=== PATIENT | female | born 1990 | race Caucasian/White ===

== ENCOUNTER 2020-08-02 18:20 | Emergency (ER) | payer BC, SELFPAY ==
--- NOTE | ~2020-08-02 | US_ITS ---
EXAMINATION: US pelvic complete w TV DATE: 08/02/2020 23:20 INDICATION: Right-sided pelvic pain and right adnexal mass, concern for ovarian torsion TECHNIQUE: Multiple transabdominal and endovaginal sonographic images of the pelvis were obtained. COMPARISON: None. FINDINGS: The uterus measures 7.9 x 3.9 x 5.7 cm. The endometrial complex measures 7 mm. There is a 1 4.9 x 10.0 x 14.2 cm cystic mass of the right adnexa. The right ovary is not definitely visualized du e to patient body habitus and displacement of the ovary by the mass. Some images labeled right adnexa appear to demonstrate vascular flow however this is not definitely attributed to the ovary. The left ovary measures 6.6 x 4.9 x 5.1 cm and contains a 5.7 x 4.6 x 4.7 cm hypoechoic mass. There is no nicolasa e fluid in the pelvis. IMPRESSION: 1. 14.9 cm cystic mass of the right adnexa without definite ovarian tissue identified. MANAGER EMERGENCY consultati on is recommended. 2. 5.7 cm hypoechoic lesion of the left ovary, possibly hemorrhagic cyst or endometrioma. Sonographic follow-up in 6-12 weeks is recommended. Reviewed, dictated and finalized at location A. IMPRESSION: 1. 14.9 cm cystic mass of the right adnexa without definite ovarian tissue iden tified. MANAGER EMERGENCY consultation is recommended. 2. 5.7 cm hypoechoic lesion of the left ovary, possibly hemorrhagic cyst or end ometrioma. Sonographic follow-up in 6-12 weeks is recommended.
--- NOTE | ~2020-08-02 | CT_ITS ---
EXAMINATION: CT abdomen pelvis wo con DATE: 08/02/2020 21:18 INDICATION: Right flank pain TECHNIQUE: Computed tomography (CT) of the abdomen and pelvis was performed without intravenous contr ast. The dose-length product (DLP) was 1627.18 mGy-cm. Automated exposure control and iterative recon struction technique were employed. COMPARISON: None FINDINGS: The lung bases are clear. The heart size is normal. The liver, spleen, pancreas, gallbladde r, and adrenal glands are normal. The kidneys are unremarkable. No stones are identified in the kidne ys, ureters, or bladder. There is no hydronephrosis or hydroureter. There is a 15.1 x 11.8 x 15.3 cm cystic lesion arising from the right adnexa. No definite solid nodular component is identified althou gh sensitivity is limited by the absence of intravenous contrast. There is a 6.5 x 5.0 cm cystic lesi on of the left adnexa. The appendix is not definitely identified. There is moderate spondylosis at L5 -S1. A fat-containing umbilical hernia is noted. IMPRESSION: 1. 15.3 cm cystic lesion of the right adnexa which may be benign or malignant. Given history of right flank pain, resulting ovarian torsion is a consideration. Recommend DRYWALL APPLICATOR consultation and consider pe lvic ultrasound. 2. 6.5 cm cystic lesion of the left adnexa which could be simultaneously evaluated with pelvic ultras ound. Reviewed, dictated and finalized at location A. IMPRESSION: 1. 15.3 cm cystic lesion of the right adnexa which may be benign or malignant. Given history of right flank pain, resulting ovarian torsion is a consideration . Recommend DRYWALL APPLICATOR consultation and consider pelvic ultrasound. 2. 6.5 cm cystic lesion of the left adnexa which could be simultaneously evalua jarod with pelvic ultrasound.
[2020-08-02 19:17] VITALS: BP 171/106; PULSE 96; RESP 16; TEMP 36.4; O2SAT 99
[2020-08-02 19:28] LABS: Basophils Percent Auto 0.3 % (0.2-1.2); Eosinophils Absolute Auto 0.2 K/mm3 (0-0.3); Eosinophils Percent Auto 1.4 % (0-4.4); Hemoglobin 13.6 g/dL (12.0-15.0); Immature Granulocyte Absolute 0.05 K/mm3 (0.00-0.031); Immature Granulocyte Percent A 0.4 % (0-0.5); Lymphocytes Absolute Auto 2.61 K/mm3 (0.9-3.2); Lymphocytes Percent Auto 22.7 % (18.3-44.2); Mean Corpuscular HGB Conc 32.4 g/dl (32-36); Mean Corpuscular Hemoglobin 26.2 pg (26-34); Mean Corpuscular Volume 80.8 fl (80-100); Mean Platelet Volume 9.5 fl (7.4-10.4); Monocytes Absolute Auto 0.6 K/mm3 (0.1-0.6); Monocytes Percent Auto 5.1 % (2.6-8.5); Neutrophils Absolute Auto 8.1 K/mm3 (1.3-6.7); Neutrophils Percent Auto 70.1 % (45.5-73.1); Platelet Count Result 398 k/mm3 (150-375); Red Cell Distribution Width 12.7 % (11.5-14.5); White Blood Count 11.5 K/mm3 (4.5-10.0)
[2020-08-02 19:40] LABS: Alanine Aminotransferase 42 U/L (4-35); Albumin Level 4.5 g/dL (3.5-5.1); Alkaline Phosphatase 111 U/L (38-126); Anion Gap 11 mmol/L (8-16); Aspartate Amino Transferase 36 U/L (14-36); Bilirubin,Total 0.5 mg/dL (0.2-1.3); Blood Urea Nitrogen 13 mg/dL (7-17); Calcium 9.4 mg/dL (8.4-10.2); Carbon Dioxide 26 mmol/L (22-30); Chloride 102 mmol/L (98-107); Estimated CRCL calculation 121 ml/min; Estimated Glomerular Filt Rate > 60; Glucose 92 mg/dL (65-105); Lipase 236 U/L (23-300); Potassium 3.6 mmol/L (3.4-5.0); Sodium 139 mmol/L (137-145)
[2020-08-02 20:05] LABS: Add Urine Microscopic? YES; Amorphous Sediment Urine Few; Appearance Urine Cloudy (Clear); Bacteria Urine Trace /hpf; Bilirubin Urine Negative (Negative); Blood Urine 2+ (Negative); Color Urine Yellow (Yellow); Glucose Urine UA Negative (Negative); Ketones Urine Negative (Negative); Leukocyte Esterase Ur 2+ LEU/UL (Negative); Mucus Urine Rare /lpf; Nitrate Urine Negative (Negative); Protein Urine 1+ mg/dL (Negative); Specific Grav Ur 1.028 (1.001-1.035); Squamous Epithelial Cell Urine Many /hpf (Few); Urobilinogen Urine Negative mg/dL (<2.0); WBC Urine 16-20 /hpf
[2020-08-02 20:57] VITALS: BP 148/90; PULSE 88; RESP 17; O2SAT 97
--- NOTE | 2020-08-02 21:07 | ED.ABDPAIN ---
HPI - Abdominal Pain General Chief Complaint: Abdominal Pain Stated Complaint: R flank pain Time Seen by Provider: 08/02/20 20:52 Source: patient Mode of arrival: ambulatory Limitations: no limitations History of Present Illness HPI narrative: Patient is a 30-year-old female who presents to emergency department for evaluation of right lower quadrant abdominal pain that began today as an aching pain that is remained persistent does not radiate has associated nausea denies similar occurrence or other complaints presents per private vehicle in no distress has not taken anything for symptoms Related Data Allergies Allergy/AdvReac Type Severity Reaction Status Date / Time No Known Allergies Allergy Verified 10/03/19 12:56 Review of Systems Review of Systems: All systems reviewed & are unremarkable except as noted in HPI and below PMFSH Past Medical History Medical History No pertinent family history No significant past medical history Surgical History Surgical History No significant past surgical history Social History Social History Smoking status: Never smoker Gender identity (if verbalized by the patient): Female Exam Narrative: Exam Narrative: GENERAL: Well-appearing, obese, and in no acute distress. HEAD: Normocephalic, atraumatic. EYES: PERRLA and EOMI. ENT: Nares clear, no rhinorrhea or epistaxis. Mucous membranes moist. CHEST: Clear to auscultation. No respiratory distress. No wheezes rales or rhonchi HEART: Regular rate and rhythm. No murmur heard. Normal peripheral pulses. ABDOMEN: Soft, right lower quadrant abdominal tenderness to palpation, nondistended, normal active bowel sounds. EXTREMITIES: Normal range of motion. No edema. SKIN: Warm, dry, no rash. NEURO: No focal deficits. Alert and oriented x3. PSYCH: Normal mood and affect. Course Course Emergency Course: Patient in the room aware of case findings treatment plan and diagnosis diagnosed with pelvic mass patient in the room at this time resting comfortably agreeing to follow with gynecology as instructed Consultations Consultation #1: Discussed case with gynecology will follow patient in clinic Date: 08/03/20 Time: 00:09 Vital Signs Vital signs: Vital Signs Temperature 97.5 F L 08/02/20 19:17 Pulse Rate 96 08/02/20 19:17 Respiratory Rate 16 08/02/20 19:17 Blood Pressure 171/106 H 08/02/20 19:17 Pulse Oximetry 99 08/02/20 19:17 Temperature 97.5 F L 08/02/20 19:17 Pulse Rate 88 08/02/20 23:58 Respiratory Rate 17 08/02/20 23:58 Blood Pressure 157/101 H 08/02/20 23:58 Pulse Oximetry 97 08/02/20 23:58 MDM - Abdominal Pain MDM Narrative Medical decision making narrative: Patient was found to have pelvic masses 1 which appears to be a cystic mass from the left ovary the ovary which is less clear patient had CAT scan and ultrasound imaging is in the room hemodynamically stable in no distress and felt appropriate for outpatient reevaluation by her dentofacial orthopedics dentist she is aware of discussion with gynecology and agrees to return if symptoms worsen and was provided with reasons to return Lab Data Result diagrams: 08/02/20 19:22 08/02/20 19:22 Labs: Lab Results 08/02/20 08/02/20 08/02/20 Range/Units 19:22 19:22 19:49 WBC 11.5 H (4.5-10.0) K/mm3 RBC 5.20 (4.2-5.4) M/mm3 Hgb 13.6 (12.0-15.0) g/dL Hct 42.0 (37.0-47.0) % MCV 80.8 (80-100) fl MCH 26.2 (26-34) pg MCHC 32.4 (32-36) g/dl RDW 12.7 (11.5-14.5) % Plt Count 398 H (150-375) k/mm3 MPV 9.5 (7.4-10.4) fl Immature Gran % (Auto) 0.4 (0-0.5) % Neut % (Auto) 70.1 (45.5-73.1) % Lymph % (Auto) 22.7 (18.3-44.2) % [place] % (Auto) 5.1 (2.6-8.5) % Eos % (Auto) 1.4 (0-4.4) % Baso % (Auto) 0.3 (0.
[2020-08-02] MEDS: SODIUM CHLORIDE 0.9% IV 1,000 ML 999 ML IV CONT (21:50)
[2020-08-02 23:58] VITALS: BP 157/101; PULSE 88; RESP 17; O2SAT 97
== END 2020-08-03 00:29 | disposition home or self-care (01) ==
PROVIDERS: Emergency Provider Emergency Medicine; PCP Nurse Practitioner Adult Health
DX: R10.2 Pelvic and perineal pain (principal); R19.09 Other intra-abdominal and pelvic swelling, mass and lump; N83.202 Unspecified ovarian cyst, left side
CPT/HCPCS: 36415; 74176; 76830; 76856; 80053; 81001; 81025; 83690; 85025; 87086; 96374; 99284; J0131; J7030

== ENCOUNTER → 2020-09-08 13:34 | Outpatient (CLI) | payer BC, SELFPAY ==
--- NOTE | ~2020-09-08 | US_ITS ---
US pelvic complete w TV DATE: 09/08/2020 14:10 INDICATION: Ovarian cyst TECHNIQUE: Real-time imaging via transabdominal and transvaginal approaches COMPARISON: 08/02/2020 pelvic ultrasound examination FINDINGS: Interval mild enlargement of right adnexal cystic lesion currently measuring 16.4 x 14.3 x 16.4 cm compared to 14.9 x 10.0 x 14.2 cm on 08/02/2020. Complicated relatively stable cyst in the left adnexal area measures up to 5.5 cm. No interval pelvic mass or abnormal pelvic fluid collection is evident. The uterus measures 9.3 cm height, 4.2 cm AP and 5.5 cm transverse dimension. The central endometrial echo complex measures 1.0 cm AP dimension. IMPRESSION: Interval mild enlargement of right adnexal cystic lesion measuring up to 16.4 cm on the c urrent study compared to prior maximal measurement of 14.9 cm. Stable approximately 5.5 cm complicated cyst of left ovary Reviewed, dictated and finalized at [facility]. Reviewed, dictated and finalized at location A. YTICAL RESEARCH PROGRAM MANAGER IMPRESSION: Interval mild enlargement of right adnexal cystic lesion measuring up to 16.4 cm on the current study compared to prior maximal measurement of 14. 9 cm. Stable approximately 5.5 cm complicated cyst of left ovary
== END ==
PROVIDERS: Visit Provider Obstetrics & Gynecology
DX: N83.201 Unspecified ovarian cyst, right side (principal); N83.202 Unspecified ovarian cyst, left side
CPT/HCPCS: 76830; 76856

== ENCOUNTER 2020-10-04 14:36 | Inpatient (IN) | payer MEDICAID, SELFPAY ==
[2020-10-04] VITALS (7 sets, daily range): BP systolic 153–170; BP diastolic 67–108; PULSE 76–102; RESP 15–19; TEMP 36.8; O2SAT 97–100
--- NOTE | ~2020-10-04 | CT_ITS ---
EXAMINATION: CT abdomen pelvis wo con DATE: 10/04/2020 16:37 INDICATION: Right flank pain and hematuria TECHNIQUE: Computed tomography (CT) of the abdomen and pelvis was performed without intravenous contr ast. The dose-length product (DLP) was 1650.24 mGy-cm. Automated exposure control and iterative recon struction technique were employed. COMPARISON: 08/02/2020 FINDINGS: There are patchy airspace opacities of the visualized lower lobes. The heart size is normal . The liver, spleen, pancreas, gallbladder, and adrenal glands are normal. The kidneys are unremarkab le. No stones are identified in the kidneys, ureters, or bladder. There is no hydronephrosis or hydro ureter. There is a 16.2 x 15.2 x 11.0 cm cystic lesion arising from the right adnexa which demonstrat es slight increase in size since the prior examination. A 6.1 x 4.9 cm cystic lesion of the left adne xa is stable to slightly decreased in size. The appendix is normal. No pathologically enlarged abdomi nal or pelvic lymph nodes are identified. There is no free intraperitoneal gas or evidence of bowel o bstruction. Moderate lumbar spondylosis is noted at L5-S1. There is a small umbilical hernia containi ng fat. IMPRESSION: 1. No CT correlate for the patient's symptoms. 2. Cystic adnexal lesions as detailed above, with slight increase on the right, which may be benign o r malignant. AMBULATORY CARE NURSE follow-up is recommended. Reviewed, dictated and finalized at location A. GATION ATTORNEY IMPRESSION: 1. No CT correlate for the patient's symptoms. 2. Cystic adnexal lesions as detailed above, with slight increase on the right, which may be benign or malignant. AMBULATORY CARE NURSE follow-up is recommended.
--- NOTE | 2020-10-04 15:03 | PC.NURSE ---
Pt attempted to provide urine sample and was unsuccessful
[2020-10-04 15:08] LABS: Basophils Percent Auto 0.2 % (0.2-1.2); Eosinophils Absolute Auto 0.1 K/mm3 (0-0.3); Eosinophils Percent Auto 1.7 % (0-4.4); Hematocrit 43.1 % (37.0-47.0); Hemoglobin 14.2 g/dL (12.0-15.0); Immature Granulocyte Absolute 0.04 K/mm3 (0.00-0.031); Immature Granulocyte Percent A 0.5 % (0-0.5); Lymphocytes Absolute Auto 1.84 K/mm3 (0.9-3.2); Lymphocytes Percent Auto 22.9 % (18.3-44.2); Mean Corpuscular HGB Conc 32.9 g/dl (32-36); Mean Corpuscular Hemoglobin 26.5 pg (26-34); Mean Corpuscular Volume 80.4 fl (80-100); Mean Platelet Volume 9.4 fl (7.4-10.4); Monocytes Absolute Auto 0.3 K/mm3 (0.1-0.6); Monocytes Percent Auto 4.1 % (2.6-8.5); Neutrophils Absolute Auto 5.7 K/mm3 (1.3-6.7); Neutrophils Percent Auto 70.6 % (45.5-73.1); Platelet Count Result 387 k/mm3 (150-375); Red Blood Count 5.36 M/mm3 (4.2-5.4); Red Cell Distribution Width 12.8 % (11.5-14.5); White Blood Count 8.1 K/mm3 (4.5-10.0)
[2020-10-04] MEDS: ONDANSETRON INJ 4 MG/2 ML VIAL IV PUSH ×2 (15:16→19:55)
[2020-10-04] MEDS: MORPHINE SULFATE (*CRX) 4 MG/ML INJ IV PUSH (15:16)
[2020-10-04] MEDS: SODIUM CHLORIDE 0.9% IV 1,000 ML 999 ML IV CONT (15:21)
[2020-10-04 15:22] LABS: Alanine Aminotransferase 39 U/L (4-35); Albumin Level 4.3 g/dL (3.5-5.1); Alkaline Phosphatase 120 U/L (38-126); Anion Gap 9 mmol/L (8-16); Aspartate Amino Transferase 37 U/L (14-36); Bilirubin,Total 0.6 mg/dL (0.2-1.3); Blood Urea Nitrogen 10 mg/dL (7-17); Calcium 9.1 mg/dL (8.4-10.2); Carbon Dioxide 27 mmol/L (22-30); Chloride 104 mmol/L (98-107); Estimated CRCL calculation 134 ml/min; Estimated Glomerular Filt Rate > 60; Glucose 119 mg/dL (65-105); Lipase 170 U/L (23-300); Potassium 3.6 mmol/L (3.4-5.0); Sodium 140 mmol/L (137-145)
--- NOTE | 2020-10-04 15:22 | ED.GENADULT ---
HPI - General Adult General Chief complaint: Abdominal Pain Stated complaint: right sided back and abd pain Time Seen by Provider: 10/04/20 14:53 Source: patient and family Mode of arrival: ambulatory Limitations: no limitations History of Present Illness HPI narrative: Sudden onset of right flank pain radiating to right lower quadrant started prior to arrival to the emergency room associated with nausea and vomiting. Patient denies any aggravating or relieving factors. Patient denies having similar symptoms in the past. Related Data Allergies Allergy/AdvReac Type Severity Reaction Status Date / Time No Known Allergies Allergy Verified 10/03/19 12:56 Review of Systems Review of Systems: Narrative: CONSTITUTIONAL: Denies fever, chills, or sweats. EYES: Denies visual changes, redness, or discharge. ENT: Denies rhinorrhea, congestion, sore throat, or otalgia. CARDIOVASCULAR: Denies chest pain, palpitations, or edema. RESPIRATORY: Denies cough or dyspnea. GASTROINTESTINAL: Denies abdominal pain, nausea, vomiting, or diarrhea. GENITOURINARY: Hematuria SKIN: Denies rash or itching. MUSCULOSKELETAL: Denies back pain, joint pain, or myalgia. NEUROLOGIC: Denies headache, numbness, or weakness. PSYCHIATRIC: Denies anxiety or depression. [facility] Past Medical History Medical History (Updated 10/04/20 @ 17:19 by Pili Cabral MD) No pertinent family history No significant past medical history Surgical History Surgical History No significant past surgical history Social History Social History Smoking status: Never smoker Gender identity (if verbalized by the patient): Female Exam Narrative: Exam Narrative: General appearance: Well-developed, well-nourished, morbidly obese, family member at the bedside patient unable to sit down or lay down., In standing position next to the sink trying to vomit Skin: Normal color Head: Normocephalic, nontraumatic Eyes: Clear conjunctiva ENT: Oropharynx normal, ears normal, nose normal Neck: Supple, nontender Chest and respiratory: Airway patent, no respiratory distress, no accessory muscle use Heart: Regular rate/rhythm Abdomen: Soft, slight right lower quadrant tenderness, moderate tenderness right flank, no organomegaly, quiet bowel sounds Vascular: Normal peripheral pulses, normal capillary refill. Neurologic: Alert and oriented ?3, Course Course Emergency Course: Stable Consultations Consultation #1: Dr. Hollins Admit to OB, n.p.o. after midnight Date: 10/04/20 Time: 17:17 Vital Signs Vital signs: Vital Signs Temperature 36.8 C 10/04/20 14:53 Pulse Rate 80 10/04/20 14:53 Respiratory Rate 19 10/04/20 14:53 Blood Pressure 159/67 H 10/04/20 14:53 Pulse Oximetry 99 10/04/20 14:53 Temperature 36.8 C 10/04/20 14:53 Pulse Rate 77 10/04/20 16:25 Respiratory Rate 18 10/04/20 16:25 Blood Pressure 163/98 H 10/04/20 16:25 Pulse Oximetry 98 10/04/20 16:25 Medical Decision Making MDM Narrative Medical decision making narrative: Sudden onset of pain at the flank area radiating to the right lower quadrant make the suspicious for kidney stone high likely Labs, UA, CT abdomen and pelvis without contrast ordered. IV fluids, IV morphine and Zofran ordered. Further plan to follow Differential Diagnosis Differential Diagnosis: Kidney stone, pyelonephritis, constipation, diverticulitis, ovarian cyst Vital Signs Vital Signs: Vital Signs Temperature 36.8 C 10/04/20 14:53 Pulse Rate 80 10/04/20 14:53 Respiratory Rate 19 10/04/20 14:53 Blood Pressure 159/67 H 10/04/20
--- NOTE | 2020-10-04 15:44 | PC.NURSE ---
Per [facility] EDP Dr Cabral - ordered Dilaudid .5mg, Reglan 10mg, Benadryl 50 mg.
[2020-10-04] MEDS: METOCLOPRAMIDE HCL INJ 10 MG/2 ML VIAL IV PUSH (15:51)
[2020-10-04] MEDS: diphenhydrAMINE HCl INJ 50 MG/ML VIAL IV PUSH (15:51)
[2020-10-04] MEDS: HYDROmorphone HCL INJ (*CRX) 1 MG/ML SYR 0.5 MG IV PUSH ×3 (15:51→19:53)
--- NOTE | 2020-10-04 16:18 | PC.NURSE ---
Pt to the bathroom to attempt urine sample
[2020-10-04 16:45] LABS: Add Urine Microscopic? YES; Amorphous Sediment Urine Few; Appearance Urine Cloudy (Clear); Bacteria Urine 1+ /hpf; Bilirubin Urine Negative (Negative); Blood Urine 3+ (Negative); Color Urine Red (Yellow); Glucose Urine UA Negative (Negative); Ketones Urine Trace mg/dL (Negative); Leukocyte Esterase Ur Trace LEU/UL (Negative); Mucus Urine Moderate /lpf; Nitrate Urine Negative (Negative); Protein Urine 2+ mg/dL (Negative); RBC Urine >75 /hpf (0-2); Specific Grav Ur 1.026 (1.001-1.035); Squamous Epithelial Cell Urine Many /hpf (Few); Urobilinogen Urine Negative mg/dL (<2.0); WBC Urine 21-30 /hpf
[2020-10-04] MEDS: SODIUM CHLORIDE 0.9% IV 1,000 ML 125 ML IV CONT (20:00)
[2020-10-04] MEDS: LABETALOL HCL 100 MG TABLET 200 MG PO (21:59)
[2020-10-04] MEDS: KETOROLAC 30 MG/ML VIAL (*BKC) IV PUSH (22:43)
[2020-10-05] VITALS (17 sets, daily range): BP systolic 121–160; BP diastolic 65–104; PULSE 77–101; RESP 12–20; TEMP 36.4–37.3; O2SAT 94–100
[2020-10-05] MEDS: ONDANSETRON INJ 4 MG/2 ML VIAL IV PUSH ×3 (00:05→21:13)
[2020-10-05] MEDS: HYDROmorphone HCL INJ (*CRX) 1 MG/ML SYR 0.5 MG IV PUSH ×4 (00:05→12:17)
[2020-10-05] MEDS: SODIUM CHLORIDE 0.9% IV 1,000 ML 125 ML IV CONT ×2 (04:30→12:57)
--- NOTE | 2020-10-05 12:54 | PM.IMHP ---
H&P: HPI History of Present Illness Date/Time: 10/05/20 12:54 Chief complaint: Ovarian Cyst Narrative: Nat Huston is a 30 year old female nullip with a history of large right ovarian cyst. Patient seen in ER for ovarian cyst in august noted to be 15 cm. Patient followed up in office and offered surgical removal patient declined at time. Patient given follow up appts and ultrasound and pain precautions for possible torsion. Patient presented to ER last night with sudden onset of Pain on the right side. patient admitted for observation with no improvement with pain and desires removal at this time. Review of Systems Review of Systems: Narrative: nausea and sweating with pain PMFSH Past Medical History Medical History No pertinent family history No significant past medical history Surgical History Surgical History No significant past surgical history Social History Social History Smoking status: Never smoker Gender identity (if verbalized by the patient): Female Meds Home Medications and Allergies Home Medications Medication Instructions Recorded Confirmed Type cephalexin [Keflex] 500 mg PO Q8H 7 Days #21 cap 08/03/20 Rx ibuprofen [IBU] 600 mg PO QID PRN #7 tablet 08/03/20 Rx Allergies Allergy/AdvReac Type Severity Reaction Status Date / Time No Known Allergies Allergy Verified 10/03/19 12:56 Vital Signs Vital Signs - 24 hr 10/04/20 14:53 10/04/20 15:51 10/04/20 16:25 Temperature 36.8 C Pulse Rate 80 79 77 Respiratory Rate 19 15 18 Blood Pressure 159/67 H 153/93 H 163/98 H Pulse Oximetry 99 100 98 10/04/20 17:20 10/04/20 18:11 10/04/20 20:50 Temperature 36.8 C Pulse Rate 76 91 102 H Respiratory Rate 17 15 16 Blood Pressure 170/103 H 158/95 H 161/108 H Pulse Oximetry 100 97 99 10/04/20 21:59 10/05/20 00:15 10/05/20 04:20 Temperature 36.8 C 36.6 C Pulse Rate 98 96 82 Respiratory Rate 15 20 Blood Pressure 121/73 160/104 H Pulse Oximetry 98 100 10/05/20 08:00 Temperature 37.1 C Pulse Rate 82 Respiratory Rate 16 Blood Pressure 139/78 Pulse Oximetry 99 Exam Const: General: in distress Orientation/consciousness: oriented to person, oriented to place and oriented to time GI: GI Palp: Yes Guarding due to palpation present (GI) Other: Obese tender in abdomen right greater than left H&P: Results Labs Labs: Short CBC 10/04/20 Range/Units 14:56 WBC 8.1 (4.5-10.0) K/mm3 Hgb 14.2 (12.0-15.0) g/dL Hct 43.1 (37.0-47.0) % Plt Count 387 H (150-375) k/mm3 BMP 10/04/20 14:56 Sodium 140 Potassium 3.6 Chloride 104 Carbon Dioxide 27 BUN 10 Creatinine 0.90 Glucose 119 H Calcium 9.1 Liver Function 10/04/20 Range/Units 14:56 Total Bilirubin 0.6 (0.2-1.3) mg/dL AST 37 H (14-36) U/L ALT 39 H (4-35) U/L Alkaline Phosphatase 120 (38-126) U/L Albumin 4.3 (3.5-5.1) g/dL Urine 10/04/20 Range/Units 16:24 Urine Color Red H (Yellow) Urine Appearance Cloudy H (Clear) Urine pH 5.0 (5.0-9.0) Ur Specific [place] 1.026 (1.001-1.035) Urine Protein 2+ H (Negative) mg/dL Urine Glucose (UA) Negative (Negative) mg/dL Assessment and Plan Assessment and plan (1) Ovarian cyst: Qualifiers: Laterality: right Qualified Code(s): N83.201 - Unspecified ovarian cyst, right side Code(s): N83.209 - Unspecified ovarian cyst, unspecified side Status: Acute Assessment and Plan: Scheduled for a laparoscopy with right oopherectomy with possible laparotomy. Risk and benefits reviewed with patient in detail including but not limited to bleeding, infection, damage to surrounding organs,and anesthesia. Patient reports understands and verbally agrees to proceed with surgery.
[2020-10-05] MEDS: LACTATED RINGERS 1,000 ML 30 ML IV CONT ×2 (13:40→17:26)
--- NOTE | 2020-10-05 14:13 | WPDANESEPPF ---
Anes - Initial Pre Proc Eval Procedure: Operation Date: 10/05/20 14:30 Proposed Procedures p Diagnostic Laparoscopy, Possible Right Oophorectomy, Possible Open - Jose Luis Hollins MD Date/Time: 10/05/20 14:13 Surgeon: Jose Luis Hollins MD Pre Op Diagnosis: Ovarian Cyst Patient Data Age: 30 Gender: F Height: 5 ft 5 in Weight: 180 kg Last Vital Signs Temp 98.7 F 10/05/20 08:00 Pulse 82 10/05/20 08:00 Resp 16 10/05/20 08:00 BP 139/78 10/05/20 08:00 Pulse Ox 99 10/05/20 08:00 Allergies Allergy/AdvReac Type Severity Reaction Status Date / Time No Known Allergies Allergy Verified 10/03/19 12:56 Home Medications Medication Instructions Recorded Confirmed Type cephalexin [Keflex] 500 mg PO Q8H 7 Days #21 cap 08/03/20 Rx ibuprofen [IBU] 600 mg PO QID PRN #7 tablet 08/03/20 Rx Laboratory Tests 10/04/20 10/04/20 10/04/20 14:56 14:56 16:24 WBC 8.1 K/mm3 K/mm3 (4.5-10.0) RBC 5.36 M/mm3 M/mm3 (4.2-5.4) Hgb 14.2 g/dL g/dL (12.0-15.0) Hct 43.1 % % (37.0-47.0) MCV 80.4 fl fl (80-100) MCH 26.5 pg pg (26-34) MCHC 32.9 g/dl g/dl (32-36) RDW 12.8 % % (11.5-14.5) Plt Count 387 k/mm3 H k/mm3 (150-375) MPV 9.4 fl fl (7.4-10.4) Immature Gran % (Auto) 0.5 % % (0-0.5) Neut % (Auto) 70.6 % % (45.5-73.1) Lymph % (Auto) 22.9 % % (18.3-44.2) [place] % (Auto) 4.1 % % (2.6-8.5) Eos % (Auto) 1.7 % % (0-4.4) Baso % (Auto) 0.2 % % (0.2-1.2) Lymph # (Auto) 1.84 K/mm3 K/mm3 (0.9-3.2) [place] # (Auto) 0.3 K/mm3 K/mm3 (0.1-0.6) Eos # (Auto) 0.1 K/mm3 K/mm3 (0-0.3) Baso # (Auto) 0.0 K/mm3 K/mm3 (0.0-0.1) Abs Immat Gran (auto) 0.04 K/mm3 H K/mm3 (0.00-0.031) Absolute Neuts (auto) 5.7 K/mm3 K/mm3 (1.3-6.7) Absolute Nucleated RBC 0.0 K/mm3 K/mm3 (0.0-0.012) Nucleated RBC % 0.0 % % (0.0-0.2) Sodium 140 mmol/L mmol/L (137-145) Potassium 3.6 mmol/L mmol/L (3.4-5.0) Chloride 104 mmol/L mmol/L (98-107) Carbon Dioxide 27 mmol/L mmol/L (22-30) Anion Gap 9 mmol/L mmol/L (8-16) BUN 10 mg/dL mg/dL (7-17) Creatinine 0.90 mg/dL mg/dL (0.7-1.0) Estim Creat Clear Calc 134 ml/min ml/min Estimated GFR > 60 (59 - ) Glucose 119 mg/dL H mg/dL (65-105) Calcium 9.1 mg/dL mg/dL (8.4-10.2) Total Bilirubin 0.6 mg/dL mg/dL (0.2-1.3) AST 37 U/L H U/L (14-36) ALT 39 U/L H U/L (4-35) Alkaline Phosphatase 120 U/L U/L (38-126) Total Protein 8.0 g/dL g/dL (6.3-8.2) Albumin 4.3 g/dL g/dL (3.5-5.1) Lipase 170 U/L U/L (23-300) CA 125 Antigen Urine Color Red H (Yellow) Urine Appearance Cloudy H (Clear) Urine pH 5.0 (5.0-9.0) Ur Specific [place] 1.026 (1.001-1.035) Urine Protein 2+ mg/dL H mg/dL (Negative) Urine Glucose (UA) Negative mg/dL mg/dL (Negative) Urine Ketones Trace mg/dL mg/dL (Negative) Ur Blood (Man) 3+ H (Negative) Urine Nitrate Negative (Negative) Urine Bilirubin Negative (Negative) Urine Urobilinogen Negative mg/dL mg/dL (<2.0) Leukocyte Esterase Rfl Trace CLAUDE/UL H CLAUDE/UL (Negative) Urine RBC >75 /hpf H /hpf (0-2) Urine WBC 21-30 /hpf H /hpf Ur Squamous Epith Cells Many /hpf H /hpf (Few) Amorphous Sediment Few H (None) Urine Bacteria 1+ /hpf H /hpf Hyaline Casts 3-4 /lpf H /lpf (None) Urine Mucus Moderate /lpf H /lpf 10/04/20 17:25 WBC RBC Hgb Hct MCV MCH MCHC
--- NOTE | 2020-10-05 14:14 | WPDHPUPDATE1 ---
History and Physical Update Update Date/Time: 10/05/20 14:14 History and Physical has been reviewed, including an updated exam of the patient. There are NO changes in the patient's condition. Risks, benefits, and alternatives have been discussed and questions answered. Patient agrees to proceed with procedure.
--- NOTE | 2020-10-05 17:06 | PM.OP ---
Procedure Note - Brief Procedure Note - Brief Date of procedure: 10/06/20 Pre-op diagnosis: Ovarian Cyst Procedure performed: torsed right ovary and tube and left ovarian cyst Anesthesia: GETA Surgeon: Jose Luis Hollins MD Estimated blood loss (mL): 100 Urine output (mL): 200 Drains: No Packing: No Pathology: yes Complications: None Condition: stable Disposition: floor Findings: large right ovarian cyst torsed x4 and left ovarian cyst.
--- NOTE | 2020-10-05 17:30 | PC.NURSE ---
To OR per [bed ], IV [intact and saline locked]. Report given to [Merlene RN ].
[2020-10-05] MEDS: fentaNYL CITRATE INJ (*CRX) 100 MCG/2 ML VIAL 25 MCG IV PUSH ×3 (17:51→18:03)
[2020-10-05] MEDS: KETOROLAC 30 MG/ML VIAL (*BKC) IV PUSH (19:19)
[2020-10-05] MEDS: DEXTROSE 5%/LACTATED RINGERS 1,000 ML 125 ML IV CONT (19:20)
[2020-10-05] MEDS: ceFAZolin 3 GM/D5W 100 ML 100 ML IVPB (19:20)
[2020-10-05] MEDS: HYDROcodone/acetaminophen (*CRX) 5-325 MG TABLET 1 TAB PO (21:14)
[2020-10-06] VITALS: BP 119/70; PULSE 89; RESP 18; TEMP 37.4; O2SAT 95
[2020-10-06] MEDS: HYDROcodone/acetaminophen (*CRX) 5-325 MG TABLET 1 TAB PO ×4 (00:06→12:37)
[2020-10-06] MEDS: KETOROLAC 30 MG/ML VIAL (*BKC) IV PUSH (04:15)
[2020-10-06 04:20] VITALS: BP 105/60; PULSE 78; RESP 15; TEMP 37.2; O2SAT 93
[2020-10-06 05:34] LABS: Basophils Percent Auto 0.1 % (0.2-1.2); Hematocrit 34.7 % (37.0-47.0); Hemoglobin 11.4 g/dL (12.0-15.0); Immature Granulocyte Absolute 0.05 K/mm3 (0.00-0.031); Immature Granulocyte Percent A 0.4 % (0-0.5); Lymphocytes Absolute Auto 1.07 K/mm3 (0.9-3.2); Lymphocytes Percent Auto 9.2 % (18.3-44.2); Mean Corpuscular HGB Conc 32.9 g/dl (32-36); Mean Corpuscular Hemoglobin 27.1 pg (26-34); Mean Corpuscular Volume 82.6 fl (80-100); Mean Platelet Volume 9.5 fl (7.4-10.4); Monocytes Absolute Auto 0.9 K/mm3 (0.1-0.6); Monocytes Percent Auto 8.1 % (2.6-8.5); Neutrophils Absolute Auto 9.6 K/mm3 (1.3-6.7); Neutrophils Percent Auto 82.2 % (45.5-73.1); Platelet Count Result 350 k/mm3 (150-375); Red Cell Distribution Width 12.9 % (11.5-14.5); White Blood Count 11.7 K/mm3 (4.5-10.0)
--- NOTE | 2020-10-06 07:15 | P.PNAN_ITS ---
Anes - Prog Note Post-Op Date/Time: 10/06/20 07:15 Cardiovascular status: normal Respiratory status: normal Airway patency: baseline Mental status: baseline Post-Op hydration status: normal Vital Signs: Last Vital Signs Temp 99.0 F 10/06/20 04:20 Pulse 78 10/06/20 04:20 Resp 15 10/06/20 04:20 BP 105/60 10/06/20 04:20 Pulse Ox 93 10/06/20 04:20 Pain Score (VAS): 01/03 I/O: Intake & Output 10/05/20 10/05/20 10/06/20 15:59 23:59 07:59 Intake Total 1000 300 120 Output Total 500 700 600 Balance 500 -400 -480 Laboratory Tests 10/06/20 05:10 10/04/20 14:56 10/05/20 10/06/20 13:55 05:10 WBC 11.7 H RBC 4.20 Hgb 11.4 L Hct 34.7 L MCV 82.6 MCH 27.1 MCHC 32.9 RDW 12.9 Plt Count 350 MPV 9.5 Immature Gran % (Auto) 0.4 Neut % (Auto) 82.2 H Lymph % (Auto) 9.2 L [place] % (Auto) 8.1 Eos % (Auto) 0.0 Baso % (Auto) 0.1 L Lymph # (Auto) 1.07 [place] # (Auto) 0.9 H Eos # (Auto) 0.0 Baso # (Auto) 0.0 Abs Immat Gran (auto) 0.05 H Absolute Neuts (auto) 9.6 H Absolute Nucleated RBC 0.0 Nucleated RBC % 0.0 Blood Type A Positive Antibody Screen Negative Microbiology 10/04/20 16:24 Urine Clean Catch Urine Culture - Final Patient Feedback: Patient satisfied with anesthetic care.
[2020-10-06 07:30] VITALS: BP 115/72; PULSE 92; RESP 16; TEMP 37.7; O2SAT 96
[2020-10-06 11:15] VITALS: BP 105/52; PULSE 96; RESP 18; TEMP 37; O2SAT 95
--- NOTE | 2020-10-06 15:12 | PM.PROC ---
Procedure Note - Detailed Date of procedure: 10/06/20 Pre-op diagnosis: Ovarian Cyst Torsed right ovarian mass and left ovarian cyst. Procedure performed: Laparotomy with right salpingoopherectomy and left cysectomy Description of procedure: The patient was taken to the operating room placed under anesthesia in a Dorsal lithotomy position. A bivalve was placed into the vagina and anterior lip of the cervix was grasped with a single-tooth tenaculum uterus was sounded to 8centimeter. A uterine manipulator was placed and the bivalve speculum was removed. Attention then turned to the abdomen and patient not guarding exam showed mass four fingerbreaths above umbilicus. A vertical incision was made and carried down to the underlying layer of fascia. Bleeding vessels in the subcutaneous tissue were cauterized for hemostasis, The fascia was excised and extend superiorly and inferiorly. the fascia was dissected off using sharp and blunt dissection while tenting with [facility] years. The muscles were in the midline. The peritoneum is grasped with a Peon and entered using Metzenbaum scissors and the incision is extended with blunt traction. The abdomen was examined and the right ovarian mass was exteriorized. The pedicle was torsed x 4 times and no blood flow returned. the Infundibular pelvic ligament was transected and suture ligated. the uterine ovarian ligament was transected and suture ligated. The pelvis was inspected, the bowel was packed away using moist laparotomy sponges, and the Thu was placed. Good hemostasis is noted The left ovary noted to have a 6 cm cyst that was transected with bovie/cautery. the left ovary was wrapped in intercede. The instruments and lap sponges are removed. The fascia is closed using 0 PDS in a running fashion. Subcutaneous tissues are irrigated and made hemostatic using Bovie cautery. the subcutaneous tissue was closed with 3 0 plain gut The skin is closed using 4 0 Vicryl in a subcuticular fashion. Dermaflex was placed over the incision. Sponge instrument and needle counts are correct per the OR staff. Patient was given Ancef. Anesthesia: GETA Surgeon: Jose Luis Hollins MD Estimated blood loss (mL): 100 Drains: No Packing: No Pathology: yes Complications: None Condition: stable Disposition: PACU Findings: large torsed right ovarian mass and left ovarian cyst.
[2020-10-07 03:20] LABS: CA-125 25 U/mL (<35)
--- NOTE | 2020-10-25 09:16 | P.DS_ITS ---
DS: Admitting Diagnosis Admitting Diagnosis Admitting Diagnosis: pelvic pain ovarian cyst DS: Discharge Diagnosis Discharge Diagnosis (1) Ovarian cyst: Qualifiers: Laterality: right Qualified Code(s): N83.201 - Unspecified ovarian cyst, right side Code(s): N83.209 - Unspecified ovarian cyst, unspecified side Status: Acute (2) Ovarian torsion: Code(s): N83.519 - Torsion of ovary and ovarian pedicle, unspecified side Status: Acute DS: Summary Hospital Course Reason for hospitalization: pelvic pain Hospital Course: Nat Huston is a 30 year old female nullip with a history of large right ovarian cyst. Patient seen in ER for ovarian cyst in august noted to be 15 cm. Patient followed up in office and offered surgical removal patient declined at time. Patient given follow up appts and ultrasound and pain precautions for possible torsion. Patient presented to ER last night with sudden onset of Pain on the right side. patient admitted for observation with no improvement with pain and desires removal at this time. Patient Underwent Laparatomy surgery with right salpingoopherectomy for torsed right ovarian cyst and left cystectomy. Patient hospital couse was was uncomplicated and discharged on postop day 2. Status at Discharge Functional status at discharge: independent ambulation Overall status at discharge: patient is progressing back to baseline Time Spent with Patient Time attestation: Total time spent providing and/or coordinating discharge services: Exam GI: Other: incsion clean dry and intact DS: Data Data Completed and Pending Completed studies during hospitalization: Pending at discharge 10/05/20 16:32 Surgical [PTH] Routine Surgical [PTH] Routine Discharge Plan Discharge Attending physician on discharge: Jose Luis Hollins Consulting providers: Timbo Chino Sean C. Discharging Clinician: Jose Luis Hollins Patient Disposition: Home, Self-Care Activity: may shower and may drive after 2 weeks Diet: regular Wound Care Instructions: incision open to air Patient Instructions: Laparoscopic Oophorectomy (DC) Stand Alone Forms: General Discharge Information Follow-up/Referrals: Jose Luis Hollins MD [Physician] - Discharge Medications: New hydrocodone-acetaminophen 5-325 mg Tablet 1 tab PO Q3H PRN (Reason: Pain Rated 5 Or Less) Qty: 20 RF: 0 Continued ibuprofen [IBU] 600 mg tablet 600 mg PO QID PRN (Reason: pain) Qty: 7 RF: 0 cephalexin [Keflex] 500 mg capsule 500 mg PO Q8H 7 Days Qty: 21 RF: 0 Date of admission: 10/04/20 17:20 Primary Care Provider: PHYSICIAN,[facility] Admitting Provider: Jose Luis Hollins Attending physician on admission: Jose Luis Hollins Condition: Stable
== END 2020-10-06 14:55 | disposition home or self-care (01) | DRG 513 ==
LOC: ANHED 17:19 → ANHOB2 17:38
PROVIDERS: Admitting Provider Obstetrics & Gynecology; Emergency Provider Emergency Medicine; Visit Provider Obstetrics & Gynecology
PROC: (CPT 49320; principal; 2020-10-05 14:30)
DX: N83.291 Other ovarian cyst, right side (principal); N83.292 Other ovarian cyst, left side; N83.53 Torsion of ovary, ovarian pedicle and fallopian tube; E66.01 Morbid (severe) obesity due to excess calories; Z68.44 Body mass index [BMI] 60.0-69.9, adult
CPT/HCPCS: 36415; 74176; 80053; 81001; 81025; 83690; 85025; 86304; 86850; 86900; 86901; 87086; 87088; 88305; 88307; 96361; 96374; 96375; 96376; 99285; A9270; J0131; J0330; J0690; J1100; J1170; J1200; J1885; J2250; J2270; J2405; J2704; J2710; J2765; J3010; J7030; J7120; J7121

== ENCOUNTER 2021-05-04 18:53 | Emergency (ER) | payer BC, MEDICAID, SELFPAY ==
[2021-05-04 18:59] VITALS: BP 162/109; PULSE 98; RESP 16; TEMP 36.9; O2SAT 99
--- NOTE | 2021-05-04 19:01 | ED.EAR ---
HPI - Ear Problem General Chief complaint: Ear Stated complaint: EARACHE Time Seen by Provider: 05/04/21 19:01 Source: patient and RN notes reviewed History of Present Illness HPI Narrative: Patient is a 31-year-old female who presents the urgent care with complaints of left earache that started last night. Patient states that it is worsened throughout the day. Reports of taking ibuprofen for the pain. Denies of any use of anything in the ear. States that she did go swimming over 29 April and feels that the ear is swelling . Denies of any fevers, nausea, vomiting, other upper respiratory symptoms. No other acute complaints. No acute distress noted. Patient aware of the plan of care. Some parts of this dictation were generated by voice recognition software and may contain typographical and/or grammatical inaccuracies. Related Data Home Medications Medication Instructions Recorded Confirmed norethindrone-e.estradiol-iron [Lo tablet 05/04/21 Loestrin Fe] omeprazole 05/04/21 Allergies Allergy/AdvReac Type Severity Reaction Status Date / Time No Known Allergies Allergy Verified 10/03/19 12:56 Review of Systems Review of Systems: Narrative: CONSTITUTIONAL: Denies fever, chills, or sweats. EYES: Denies visual changes, redness, or discharge. ENT: Denies rhinorrhea, congestion, sore throat. Reports of left otalgia. CARDIOVASCULAR: Denies chest pain, palpitations, or edema. RESPIRATORY: Denies cough or dyspnea. GASTROINTESTINAL: Denies abdominal pain, nausea, vomiting, or diarrhea. GENITOURINARY: Denies dysuria or hematuria. SKIN: Denies rash or itching. MUSCULOSKELETAL: Denies back pain, joint pain, or myalgia. NEUROLOGIC: Denies headache, numbness, or weakness. All other systems reviewed are negative, except as documented in HPI. [facility] Past Medical History Medical History (Updated 05/04/21 @ 19:08 by VAN Nielsen) No pertinent family history No significant past medical history Ovarian torsion Super-super obese Surgical History Surgical History No significant past surgical history Social History Social History Smoking status: Never smoker Gender identity (if verbalized by the patient): Female Comments At the time of my signature, I reviewed and agree with the nursing past medical, surgical, social, and family history. There is no relevant family history pertinent to the patient complaint. Exam Narrative: Exam Narrative: GENERAL: This is a well-nourished, well-developed patient, in no apparent distress. HEAD: normocephalic, atraumatic. EYES: PERRL. Sclera clear/white. Vision is grossly intact. EARS: External ears normal, right auditory canal clear and without drainage, mild erythema and edema noted to left auditory canal with scant yellow drainage. Injected moderately erythemic left TM-unable to determine perforation due to drainage, right TMs normal without perforation. Hearing grossly intact. NOSE: External nose normal with no obvious nasal discharge, nares without redness, no rhinorrhea. THROAT: Mucous membranes moist, posterior pharynx clear. NECK: Neck supple CARDIOVASCULAR: Regular rate and rhythm without murmurs, gallops, or rubs. RESPIRATORY: Clear to auscultation. Breath sounds equal bilaterally. No wheezes, rales, or rhonchi. SKIN: warm, intact with no suspicious lesions or rash, good texture and turgor. NEURO: awake, alert, and oriented to person, place and time. There were no obvious focal neurologic abnormalities. EXTREMITIES: No clubbing, cyanosis, or edema. Course Vital Signs Vital signs: Vital Signs Temperature 98.4 F 05/04/21 18:59 Pulse Rate 98 05/04/21 18:59 Respiratory Rate 16 05/04/21 18:59 Blood Pressure 162/109 H 05/04/21 18:59 Pulse Oximetry 99 05/04/21 18:59 Temperature 98.4 F 05/04/21 18:59 Pulse Rate 98 05/04/21 18:59 Re
== END 2021-05-04 19:13 | disposition home or self-care (01) ==
PROVIDERS: Emergency Provider Nurse Practitioner Family; PCP Nurse Practitioner Adult Health
DX: H66.92 Otitis media, unspecified, left ear (principal)
CPT/HCPCS: 99213; G0463

== ENCOUNTER 2024-12-05 23:38 | Emergency (ER) | payer OTHER, SELFPAY ==
--- OUTSIDE RECORDS SUMMARY | 2024-12-05 23:39 | XMS_ITS | Data Portability ---
Author Organization [place] - [facility], Main Office Address [address] [place] [address] Assessment Encounter Date Assessment Date Assessment LastModified by Organization Details LastModified Time 08/04/2023 08/04/2023 WWE- CURRICULUM AND INSTRUCTION SPECIALIST- Lamont Call office if worse, ER if life-threatening illness RTC in 3 months She voices understanding of plan and agrees [email or web address] Not available 08/04/2023 16:02:48 11/03/2023 11/03/2023 WWE- CURRICULUM AND INSTRUCTION SPECIALIST- Lamont Call office if worse, ER if life-threatening illness She plans transfer to PCP in [place] She voices understanding of plan and agrees [email or web address] Not available 11/03/2023 14:33:24 Plan of Treatment Reminders Order Date Submit Date Provider Last Modified By Organization Details Last Modified Time Details Appointments Any 15 2024 04:00P Kimberly Renteria APRN Not available Not available Not available Lab CBC w/ auto diff 2022 023 KARELY [facility], [address], [place], [address], 08/09/2023 15:39:42 CMP, serum or plasma 2022 023 KARELY [facility], [address], [place], [address], 08/09/2023 15:39:42 insulin, serum 2022 023 [facility], [address], [place], [address], 08/11/2023 12:23:57 HbA1c (hemoglob in A1c), blood 2022 023 [facility], [address], [place], [address], 08/11/2023 12:23:58 vitamin B12 + folate, serum or blood 2022 023 KARELY [facility], [address], [place], [address], 08/09/2023 15:39:42 lipid panel, serum 2023 024 alysha Goodson, [address], [place], [address], 08/24/2024 07:25:22 HbA1c (hemoglob in A1c), blood 2023 024 alysha Goodson, [address], [place], [address], 08/24/2024 07:25:22 CMP, serum or plasma 2023 024 alysha Goodson, [address], [place], [address], 08/24/2024 07:25:22 TSH + free T4, serum 2023 024 alysha Goodson, [address], [place], [address], 08/24/2024 07:25:23 CBC w/ auto diff 2023 024 alysha Goodson, [address], [place], [address], 08/24/2024 07:25:23 vitamin D, 25-hydrox y, total, serum 2023 024 alysha Goodson, [address], [place], [address], 08/24/2024 07:25:23 vitamin B12 + folate, serum or blood 2023 024 [facility], [address], [place], [address], 08/24/2024 07:25:23 hepatitis C virus Ab, serum 2023 024 [facility] (Lab), [address] [place], [address], 08/24/2024 08:35:48 HbA1c (hemoglob in A1c), blood 2024 [facility]25 [facility], [address], [place], [address], 11/23/2024 15:17:12 Referral None recorded. Procedures None recorded. Surgeries None recorded. Imaging None recorded. Medication Orders Zepbound 10 mg/0.5 mL subcutane ous pen injector 2023 024 [facility] [address], [address] [facility], [place], [address], 08/23/2024 17:20:44 Zepbound 10 mg/0.5 mL subcutane ous pen injector 2023 024 [facility] [address], [address] [facility], [place], [address], 08/23/2024 17:20:44 metformin ER 500 mg tablet,ex tended release 24 hr 2023 024 [facility] [address], [address] [facility], [place], [address], 02/19/2024 14:28:11 ergocalci ferol (vitamin D2) 1,250 mcg (50,000 unit) capsule 2024 025 [facility] [address], [address], [place], [address], 11/22/2024 17:33:49 metformin ER 500 mg tablet,ex tended release 24 hr 2024 025 KARELY Bhatti [facility] [address], [address], [place], [address], 11/22/2024 17:33:53 Patient TargetsNo targets recorded. Patient Instructions Encounter Date Encounter Id Patient Instructions Last Modified By Organization Details Last Modified Time 02/19/2024 [id number] Follow up in 6 months and as needed Obtain labs Medications sent to pharmacy Not available 02/19/2024 14:27:58 08/23/2024 [id number] Follow up in 3 months Obtain labs Tests: Referral: Recommend: Tetanus vaccine Not available 08/19/2024 19:34:38 11/22/2024 [id number] Follow up in 6 months and as needed Prescriptions sent to pharmacy Obtain lab Tests: Referral: Recommend: Tetanus vaccine Not available 11/22/2024 17:33:51 Reason for Referral None Reported. Results Created Date Observation Date Name Description Value Unit Range Abnormal Flag Note LastModifiedBy Organization Detail LastModifiedTime Result Notes None recorded. 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 45108840 Active Ryana Renteria APRN [address], [place], [address], [employer] 4 13:17:37 Hyperinsuli nism 69628300 Active 2020 Rayna Renteria APRN [address], [place], [address], [employer] 4 13:17:42 Severe obesity 1281655740106 4 Active 2020 Ryana Renteria APRN [address], [address], [place], [address], [employer] [facility] 4 13:17:54 Insulin resistance 849197363 Active 2022 Rayna Renteria APRN [address], [address], [place], [address], [employer] [facility] 4 13:17:45 Obesity 200709270 Active 2022 Rayna Renteria APRN [address], [address], [place], [address], [facility] [facility] 4 13:17:53 Leukocytosi s 546420722 Active 2022 Rayna Renteria APRN [address], [address], [place], [address], [employer] [facility] 4 13:17:48 Prediabetes 820597000 Active 2022 Rayna Renteria APRN [address], [address], [place], [address], [employer] [facility] 4 13:17:57 Thrombocyto sis 1794575 Active 2022 Rayna Renteria APRN [address], [place], [address], [facility] [facility] 4 13:18:01 Vitamin D deficiency 63073807 Active 2023 Rayna Renteria APRN [address], [address], [place], [address], [employer] 4 08:24:42 Problem Notes None recorded. Procedures Surgical History Date Name Laterality Status Provider Name and Address Organization Details Recorded Time oophorectomy completed Not Available [facility] 12/25/2022 12:45:26 Imaging Results None recorded. Procedure Notes None recorded. Medical Equipment None Reported. Allergies Allergen ID Allergen Name Allergen Category Reaction Reaction Severity Criticality Documentation Date Start Date Code Code System Note Provider Name and Address Organization Details Recorded Time 31096 adhesive tape environme nt,medica tion rash severe Not available 04/20/2024 [id number] UNK Rayna Renteria, STAFF DEVELOPER [address], [address], [place], [address], [facility] [employer] [facility] 4 07:59:00 Medications Name Sig Start Date Stop Date Status Note LastModified by Organization Details LastModified Time medroxyprog esterone 10 mg tablet TAKE 1 TABLET BY MOUTH AT BEDTIME FOR 10 DAYS 04/23 completed Not Available Not Available Not Available hydrocodone 5 mg-acetamin ophen 325 mg tablet TAKE ONE TABLET BY MOUTH EVERY 3 HOURS NEEDED FOR PAIN RATED 5 OR LESS 04/23 completed Not Available Not Available Not Available folic acid 400 mcg tablet TAKE 1 TABLET BY MOUTH EVERY DAY 01/07 completed Not Available Not Available Not Available sulfamethox azole 800 mg-trimetho prim 160 mg tablet 08/23 completed Not Available Not Available Not Available ofloxacin 0.3 % ear drops 01/07 completed Not Available Not Available Not Available cephalexin 500 mg capsule TAKE 1 CAPSULE BY MOUTH TWICE DAILY FOR 10 DAYS 04/23 completed Not Available Not Available Not Available triamcinolo ne acetonide 0.1 % topical ointment PRN 08/23 completed Not Available Not Available Not Available omeprazole 20 mg capsule,del ayed release TAKE 1 CAPSULE BY MOUTH EVERY DAY active Not Available Not Available No t Available cyanocobala min (vit B-12) 1,[address] 1 tablet every day by sublingua l route for 90 days. 01/07 completed Not Available Not Available Not Available ergocalcife rol (vitamin D2) 1,250 mcg (50,000 unit) capsule Take 1 capsule every week by oral route as directed. active Not Available Not Available No t Available ibuprofen 600 mg tablet TAKE 1 TABLET BY MOUTH FOUR TIMES DAILY NEEDED FOR PAIN 04/23 completed Not Available Not Available Not Available metformin ER 500 mg tablet,exte nded release 24 hr Take 1 tablet by mouth once daily active Not Available Not Available No t Available amoxicillin 875 mg-potassiu m clavulanate 125 mg tablet 01/07 completed Not Available Not Available Not Available Lo Loestrin Fe 1 mg-10 mcg (24)/10 mcg (2) tablet TAKE 1 TABLET BY MOUTH EVERY DAY 01/07 completed Not Available Not Available Not Available Saxenda 3 mg/0.5 mL (18 mg/3 mL) subcutaneou s pen injector Inject by subcutane ous route for 30 days. 04/25 completed Not Available Not Available Not Available cyanocobala min (vit B-12) 1,000 mcg sublingual lozenge DISSOLVE 1 TABLET UNDERTONG UE DAILY FOR 90 DAYS 01/07 completed Not Available Not Available Not Available Wegovy 0.5 mg/0.5 mL subcutaneou s pen injector Inject 0.5 mg every week by subcutane ous route. 04/23 completed Not Available Not Available Not Available Mounjaro 7.5 mg/0.5 mL subcutaneou s pen injector INJECT 7.5 MG SUBCUTANE OUSLY WEEKLY 02/18 completed Not Available Not Available Not Available Mounjaro 5 mg/0.5 mL subcutaneou s pen injector INJECT 5 MG EVERY WEEK BY SUBCUTANE OUS ROUTE 11/03 completed Not Available Not Available Not Available Mounjaro 2.5 mg/0.5 mL subcutaneou s pen injector active Not Available Not Available Not Available Zepbound 10 mg/0.5 mL subcutaneou s pen injector INJECT 10 MG EVERY WEEK SUBCUTANE OUSLY 08/23 completed Not Available Not Available Not Available Vitals Date Recorded Body height Body mass index (BMI) Body weight Body temperature Heart rate Oxygen saturation Oxygen saturation in Arterial blood by Pulse oximetry Systolic blood pressure Diastolic blood pressure Provider Name and Address Organization Details Last Updated DateTime 3 165.1 cm 60 kg/m2 496861. 13 g 97.9 [degF] 88 /min 98 % 98 % 134 mm[Hg] 76 mm[Hg] Ofe Soto [place] [facility] 3 15:49:02 Date Recorded Body height Body mass index (BMI) Body weight Body temperature Heart rate Oxygen saturation Oxygen saturation in Arterial blood by Pulse oximetry Systolic blood pressure Diastolic blood pressure Provider Name and Address Organization Details Last Updated DateTime 4 165.1 cm 58.5 kg/m2 167252. 36 g 97.8 [degF] 90 /min 98 % 98 % 130 mm[Hg] 82 mm[Hg] Ofe Soto MA [facility] [employer] [facility] 4 12:20:40 Date Recorded Body height Body mass index (BMI) Body weight Body temperature Heart rate Oxygen saturation Oxygen saturation in Arterial blood by Pulse oximetry Systolic blood pressure Diastolic blood pressure Provider Name and Address Organization Details Last Updated DateTime 4 165.1 cm 56.9 kg/m2 103645. 59 g 97.8 [degF] 90 /min 98 % 98 % 132 mm[Hg] 84 mm[Hg] Joyce Motely MA [facility] [employer] [facility] 4 14:13:43 Date Recorded Body height Body mass index (BMI) Body weight Body temperature Heart rate Oxygen saturation Oxygen saturation in Arterial blood by Pulse oximetry Pain severity - 0-10 verbal numeric rating [Score] - Reported Systolic blood pressure Diastolic blood pressure Provider Name and Address Organization Details Last Updated DateTime 4 165.1 cm 57.4 kg/m2 471367. 37 g 96.8 [degF] 84 /min 98 % 98 % 0 124 mm[Hg] 76 mm[Hg] Joyce Motley MA [facility] [employer] [facility] 4 17:20:23 Date Recorded Body height Body mass index (BMI) Body weight Body temperature Heart rate Oxygen saturation Oxygen saturation in Arterial blood by Pulse oximetry Pain severity - 0-10 verbal numeric rating [Score] - Reported Systolic blood pressure Diastolic blood pressure Provider Name and Address Organization Details Last Updated DateTime 5 165.1 cm 57.7 kg/m2 900708. 55 g 97.4 [degF] 78 /min 98 % 98 % 0 124 mm[Hg] 76 mm[Hg] Joyce Motley MA [facility] [employer] [facility] 5 17:22:04 Social History Question Answer Notes LastModified by Organizat ion Details LastModified Time Tobacco Smoking Status Never Smoker RAJI Maier, [facility] [employer] [facility] 11/03/2023 12:14:47 Do You Have An Advance Directive? No [id number] Information not available 12/25/2022 What Is Your Level Of Alcohol Consumption? Occasional [id number] Information not available 12/25/2022 What Is Your Level Of Caffeine Consumption? Occasional Information not available 04/01/2023 In The 14 Days Before Symptom Onset, Have You Had Close Contact With A Laboratory-confi rmed COVID-19 While That Case Was Ill? No Covid Positive 07/25/23 [email or web address] Information not available 11/03/2023 In The 14 Days Before Symptom Onset, Have You Had Close Contact With A Person Who Is Under Investigation For COVID-19 While That Person Was Ill? No [email or web address] Information not available 11/03/2023 Are You Currently Employed? Yes Information not available 11/03/2023 What Type Of Diet Are You Following? REGULAR [id number] Information not available 12/25/2022 What Is The Highest Grade Or Level Of School You Have Completed Or The Highest Degree You Have Received? 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 No [email or web address] Information not available 11/03/2023 What Is The Fluoride Status Of Your Home? Unknown Information not available 11/03/2023 Are There Any Guns Present In Your Home? No Information not available 11/03/2023 Do You Use Insect Repellent Routinely? Yes [email or web address] Information not available 11/03/2023 Where Do You Live? Apartment [email or web address] Information not available 11/03/2023 What Was The Date Of Your Most Recent Tobacco Screening? 11/22/2024 Information not available 11/22/2024 Do You Have Any Pets? Yes [email or web address] Information not available 11/03/2023 What Is Your Relationship Status? Single Information not available 04/01/2023 Do You Use Your Seat Belt Or Car Seat Routinely? Yes Information not available 02/19/2024 Do You Have Smoke And Carbon Monoxide Detectors In Your Home? Yes [email or web address] Information not available 11/03/2023 Are You Passively Exposed To Smoke? No [email or web address] Information not available 11/03/2023 Are There Any Smokers In Your House? No [email or web address] Information not available 11/03/2023 Do You Feel Stressed (tense, Restless, Nervous, Or Anxious, Or Unable To Sleep At Night)? [id number] Information not available 02/19/2024 Do You Use Any Illicit Or Recreational Drugs? No [email or web address] Information not available 11/03/2023 Do You Use Sunscreen Routinely? Yes [email or web address] Information not available 11/03/2023 Have You Recently Traveled Abroad? No [place] Jun-2023 [email or web address] Information not available 11/03/2023 Do You Have Any Dietary Restrictions? No [email or web address] Information not available 11/03/2023 Do You Or Have You Ever Used Any Other Forms Of Tobacco Or Nicotine? No [email or web address] Information not available 11/03/2023 Sex: Unknown Functional Status Question Answer Note LastModified by Organizat ion Details LastModified Time What is your exercise level? Occasional Information not available 04/01/2023 Mental Status None recorded. Family History Relationship Description Onset Age of this Age Resolved Age Notes LastModified by Organization Details LastModified Time Paternal Grandfather Heart disease [id number] Not available 12/25/2022 12:45:27 Medical History No medical history recorded. Gynecological History Statement/Question Response How many live births 0 Abnormal Pap N Date of LMP 11/21/2024 Sexually Active? N STIs/STDs N Date of Last Pap HPV Vaccine Y Current Control Method None Age at Menarche 10 Obstetrics History GPAL:G 0 P 0 0 0 0 Type Value Multiple Births 0 Full Term 0 Induced 0 Spontaneous 0 Premature 0 Living 0 Ectopics 0 Total 0 Immunizations Vaccine Type Date Status Note Provider Nam e and Address Organization Details Recorded Time COVID-19, mRNA, LNP-S, PF, 30 mcg/0.3 mL dose 01/25/2021 completed Rayna Renteria, STAFF DEVELOPER [address] [facility], [facility] [address], [place], [address], [facility] [employer] [facility] [employer] [facility] 04/20/2024 08:00:33 COVID-19, mRNA, LNP-S, PF, 30 mcg/0.3 mL dose 02/22/2021 completed Rayna Renteria APRN [address], [place], [address], [facility] [employer] [facility] [employer] [facility] 04/20/2024 08:00:33 SARS-COV-2 (COVID-19) vaccine, UNSPECIFIED 12/25/2020 completed Rayna Renteria APRN [address], [address], [place], [address], [facility] [employer] [facility] [employer] [facility] 04/20/2024 08:00:33 Past Encounters Encounter ID Performer Location Encounter Start Date Encounter Closed Date Diagnosis/Indication Diagnosis SNOMED-CT Code Diagnosis ICD10 Code Diagnosis Note [id number] [facility] Joel barbara [facility] [place] [address] 04/23/2021 00:00:00 04/23/2021 08:37:53 [id number] [facility] [address] [place] [address] [place] [address] 01/07/2022 00:00:00 01/08/2022 09:46:57 [id number] HERMINIO Glass [facility] Internal Med [address] [facility], [address] [place] [address] 04/01/2023 16:12:17 04/01/2023 16:48:37 Insulin resistance 879818707 E88.81 Check labs, not currently on medsMay want to consider metformin at follow-up Folic acid deficiency 19 5080183 E53.8 Check labs, not currently on supplement [facility] th examination 359175811 Z00.00 Hyperlipid emia screening 097908253 Z13.220 Diabetes m ellitus screening 655730271 Z13.1 Thyroid di sorder screening 870594857 Z13.29 Referral needed 11760710 9 Z76.89 Obesity 236926481 E66.9 recommend healthy, well balanced mealsfocus on lean meats, fresh vegetables , fresh fruits, whole grainsredu ce fast/proce ssed foods or eating out to no more than 1-2 times per weekaim to get 30 min of exercise most days of the week- walking is a great choicealso recommend resistance training 2-3 times per week Start Wegovy per her requestWe discussed GLP-1 agonist mechanism of action and how to mitigate side effects. Patient denies any personal or family history of MEN II, MTC or an personal history of pancreatit is. Patient is aware to call office with any severe abdominal pain or n/v, or any thyroid pain or swelling. We discussed dosing schedule and storage. Patient was shown how to use the medication on a [employer]ek[employer] device. My Fitness Pal eufemia recommende d to track foods. Discussed signs/symp toms of hypo and hyperglyce demetrius. 45 min spent with patient and over half spent on counseling . Patient voices understand ing of plan and agrees. #1 sample box of 0.25mg wegovy given to patient today [id number] HERMINIO Glass [facility] Internal Med [facility] [address] [facility], [address] [place] [address] 04/28/2023 15:50:12 04/28/2023 16:18:35 Folic acid deficiency 552502351 E53.8 on OTC supplement Obesity 295854800 E66.9 recommend healthy, well balanced mealsfocus on lean meats, fresh vegetables , fresh fruits, whole grainsredu ce fast/proce ssed foods or eating out to no more than 1-2 times per weekaim to get 30 min of exercise most days of the week- walking is a great choicealso recommend resistance training 2-3 times per week #1 sample box of 0.25mg wegovy given to patient today Leukocytosis 294256135 D 72.829 has order- is going to get cbc today Prediabetes 671752924 R7 3.03 on metforminh as done well on wegovy/mere aglutide, but is backordere d, insurance will not cover Saxenda, we are awaiting to hear back to see if they will cover Gladys stokes now, I had one additional sample box of wegovy that I gave to patient Gabby teaching demonstrat ion done today, in case she is able to get that covered pt is aware of side effects, risks, benefitspt denies any personal or family history of MEN II or MTC, denies and personal history of pancreatit ispt knows to call the office if any severe n/v or abdominal pain Thrombocytosis 6183658 D 75.839 as above- has repeat cbc order [id number] HERMINIO Glass [facility] Internal Med [address] [place] [address] 08/04/2023 15:40:29 08/04/2023 16:16:28 Prediabetes 339949262 R73.03 on metformin and Mounjaro pt is aware of side effects, risks, benefitspt denies any personal or family history of MEN II or MTC, denies and personal history of pancreatit ispt knows to call the office if any severe n/v or abdominal pain Folic acid deficiency 19 3857740 E53.8 on OTC supplement Obesity 982356612 E66.9 recommend healthy, well balanced mealsfocus on lean meats, fresh vegetables , fresh fruits, whole grainsredu ce fast/proce ssed foods or eating out to no more than 1-2 times per weekaim to get 30 min of exercise most days of the week- walking is a great choicealso recommend resistance training 2-3 times per week we also talked about the importance of tracking nutrition, keeping to a small calorie deficit of 200-300 below maintenanc e calories, getting enough protein (for her at least 140g per day), and the need for weight training to mitigate lean mass loss Leukocytosis 085407633 D 72.829 Repeat labs Thrombocytosis 1859251 D 75.839 Repeat labs [id number] HERMINIO Glass [facility] Internal Med [address] [place] [address] 11/03/2023 12:12:20 11/03/2023 12:49:38 Prediabetes 799820010 R73.03 on metformin and Mounjaro- Mounjaro is no longer covered by her insuranceW ill plan to switch her to Zepbound, she would also like to try going up to the 10mg dose pt is aware of side effects, risks, benefitspt denies any personal or family history of MEN II or MTC, denies and personal history of pancreatit ispt knows to call the office if any severe n/v or abdominal pain Folic acid deficiency 19 0483201 E53.8 on OTC supplement Obesity 258976345 E66.9 recommend healthy, well balanced mealsfocus on lean meats, fresh vegetables , fresh fruits, whole grainsredu ce fast/proce ssed foods or eating out to no more than 1-2 times per weekaim to get 30 min of exercise most days of the week- walking is a great choicealso recommend resistance training 2-3 times per week we also talked about the importance of tracking nutrition, keeping to a small calorie deficit of 200-300 below maintenanc e calories, getting enough protein (for her at least 140g per day), and the need for weight training to mitigate lean mass loss Again stressed the importance of weight training 2-3x per week. We discussed the importance of healthy muscle as it affects metabolism and overall health. Leukocytosis 199741238 D 72.829 resolved on last labs Thrombocytosis 9413402 D 75.839 resolved on last labs [id number] Rayna Renteria APRN [facility] Internal Med [facility] [address] [address] 02/19/2024 14:00:23 02/19/2024 14:33:04 Severe obesity 8403806324 9104 E66.01 Insulin resistance 64825 5000 E88.113 [id number] Rayna Renteria APRN [facility] Internal Med [facility] [address] [address] 08/23/2024 17:12:14 08/23/2024 17:35:32 Hepatitis C screening 482715949 Z11.59 [id number] Rayna Renteria APRN [facility] Internal Med [facility] [address] [address] 11/22/2024 17:12:53 11/22/2024 17:37:28 Prediabetes [id number] R73.03 Insulin resistance [id number] E88.819 Vitamin D deficiency [id number] E55.9 Health Concerns Section Related Observation LastModified by Organization Detai ls LastModified Time None Recorded Concern Status LastModified by Organization Details LastModified Time None Recorded Advance Directives Directive N: Payers Encounter Date Sequence Insurance Name Policy Number Policy Farmer Covered Member ID Farmer Member ID Guarantor Name 08/04/2023 1 [place] [id number] Nat Chery Robel [id number] Nat Vik Huston 11/03/2023 1 [facility] [id number] Nat Chery Robel [id number] Nat Chery Huston 02/19/2024 1 [facility] [id number] Nat Chery Huston [id number] Nat Huston 08/23/2024 1 [facility] [id number] Nat Vik Huston [id number] Nat Chery Huston 11/22/2024 1 [facility] [id number] Nat Chery Huston [id number] Nat Chery Huston Notes Date Note Type Note Provider Name and Address Organization Details Recorded Time 08/04/2023 text/html Nat presents today for follow up. She is completely over her COVID infection. She is back to her baseline. She has been taking her uuhy-eiv-[id number] vitamin for the folic acid. She reports she is tolerating the Mounjaro and metformin without issue. She is actually down about 50 lb as we started her on medication. She is not currently tracking her nutrition, but she is trying to be more mindful when she goes to the grocery store. She is not tracking her protein, might be a little bit low on intake. Is not currently getting any weight training. She reports recently she spent 2 weeks in [place]. With her weight loss, she was able to get around a lot easier. She did not have the chronic knee pain or ankle pain like she usually has. She is very pleased with these results with her weight loss. She does need repeat labs, she did not get those done after her last visit. Johanna Blunt, VAN-Barbara [address] [place] [address], [facility] [address], [place], [address], [facility] [employer] 08/04/2023 16:49:59 11/03/2023 text/html Nat presents today for follow-up. She reports she changed jobs, so her insurance is no longer covering the Mounjaro. She would like to pay arroyo out of pocket with a coupon. She is interested in switching to Zepbound. Overall she has tolerated the medication very well. It has been very helpful for her. She has been able to make better nutrition choices. She still needs to work on her fitness, she has not started the weight training that we previously discussed. She has lost about 65 pounds since we started her on the meds last summer. She did get her repeat labs done and her white count and platelet count were back to normal. HERMINIO Glass [address], [address], [place], [address], [employer] 11/03/2023 14:33:37 02/19/2024 text/html Nat presents today to establish care. She states that she is in need of her medications refilled. She was concerned about the Zepbound that she is on is on back order due to production shortage. She states that she takes metformin and a vitamin for the folic acid. 11/03/2023Nat presents today for follow-up. She reports she changed jobs, so her insurance is no longer covering the Mounjaro. She would like to pay arroyo out of pocket with a coupon. She is interested in switching to Zepbound. Overall she has tolerated the medication very well. It has been very helpful for her. She has been able to make better nutrition choices. She still needs to work on her fitness, she has not started the weight training that we previously discussed. She has lost about 65 pounds since we started her on the meds last summer. She did get her repeat labs done and her white count and platelet count were back to normal. Rayna Renteria APRN [address], [address], [place], [address], [employer] 02/19/2024 14:31:30 08/23/2024 text/html Nat presents today for 6 month follow up. She has not completed labs that were ordered at last visit. She states that she was one 3 days of antibiotics for a bug bite. Voices no illnesses or injuries since last visit. 02/19/2024Nat presents today to establish care. She states that she is in need of her medications refilled. She was concerned about the Zepbound that she is on is on back order due to production shortage. She states that she takes metformin and a vitamin for the folic acid. 11/03/2023Gloriarory presents today for follow-up. She reports she changed jobs, so her insurance is no longer covering the Mounjaro. She would like to pay arroyo out of pocket with a coupon. She is interested in switching to Zepbound. Overall she has tolerated the medication very well. It has been very helpful for her. She has been able to make better nutrition choices. She still needs to work on her fitness, she has not started the weight training that we previously discussed. She has lost about 65 pounds since we started her on the meds last summer. She did get her repeat labs done and her white count and platelet count were back to normal. Rayna Renteria, STAFF DEVELOPER [address] [facility], [facility] [address], [place], [address], [place] [facility] [employer] 08/23/2024 17:31:41 11/22/2024 text/html Nat presents today for 3 month follow up. Patient denies illness or injuries since last visit. She is requesting medication refills. 08/23/2024Gloriarory presents today for 6 month follow up. She has not completed labs that were ordered at last visit. She states that she was one 3 days of antibiotics for a bug bite. Voices no illnesses or injuries since last visit. 02/19/2024Nat presents today to establish care. She states that she is in need of her medications refilled. She was concerned about the Zepbound that she is on is on back order due to production shortage. She states that she takes metformin and a vitamin for the folic acid. 11/03/2023Gloriarory presents today for follow-up. She reports she changed jobs, so her insurance is no longer covering the Mounjaro. She would like to pay arroyo out of pocket with a coupon. She is interested in switching to Zepbound. Overall she has tolerated the medication very well. It has been very helpful for her. She has been able to make better nutrition choices. She still needs to work on her fitness, she has not started the weight training that we previously discussed. She has lost about 65 pounds since we started her on the meds last summer. She did get her repeat labs done and her white count and platelet count were back to normal. Rayna Renteria, STAFF DEVELOPER [address] [facility], [facility] [address], [place], [address], [place] [facility] 11/22/2024 17:34:06 OBGyn Episode No OBEpisode recorded.
[2024-12-05 23:54] VITALS: BP 199/116; PULSE 102; RESP 16; TEMP 36.4; O2SAT 100
--- NOTE | 2024-12-06 00:02 | ED_ITS ---
HPI - Abdominal Pain General Chief Complaint: Abdominal Pain Stated Complaint: abd pain Time Seen by Provider: 12/05/24 23:45 History of Present Illness HPI narrative: 34-year-old female presents to the emergency department for epigastric abdominal pain that started at 3:00 a.m. yesterday. Patient states the night prior to symptom onset she had Romanian for dinner and woke up with some pain in her epigastrium. She describes the pain as a burning sensation. She took Tums and had improvement throughout the day, however when she had breaths and chips for dinner the pain came back. She states she tried luru-oey-[id number] Tums, Pepto-Bismol and Pepcid without improvement which is what prompted her to come to the ED. She states she used to use omeprazole for GERD symptoms but has been off it for quite a while due to not needing it. She reports nausea but denies vomiting or diarrhea. Denies dysuria hematuria, chest pain or shortness of breath, fevers. denies melena or hematochezia. Related Data Home Medications ?Medication ?Instructions ?Recorded ?Confirmed ?Last Taken ?Type norethindrone 1 mg-ethinyl tablet 05/04/21 Unknown History estradiol 10 mcg (24)-iron 10 mcg(2) tablet (Lo Loestrin Fe) omeprazole 20 mg capsule,delayed 05/04/21 Unknown History release metformin 500 mg tablet 500 mg PO DAILY 12/05/24 12/05/24 Unknown History Allergies Allergy/AdvReac Type Severity Reaction Status Date / Time No Known Allergies Allergy Verified 12/05/24 23:54 Review of Systems 2 Review of Systems: All systems reviewed & are unremarkable except as noted in HPI and below PMFSH Past Medical History Medical History Ovarian torsion Super-super obese No significant past medical history No pertinent family history Surgical History Surgical History No significant past surgical history Social History Social History Smoking status: Never smoker Gender identity (if verbalized by the patient): Female Exam 2 Narrative: GENERAL: Well-appearing, well-nourished, and in no acute distress. HEAD: Normocephalic, atraumatic. EYES: EOMI. ENT: Nares clear, no rhinorrhea or epistaxis. Mucous membranes moist. NECK: Supple. CHEST: Clear to auscultation. No respiratory distress. HEART: Regular rate and rhythm. No murmur heard. Normal peripheral pulses. ABDOMEN: Normoactive bowel sounds. Abdomen soft with mild tenderness in epigastrium. No rebound or rigidity. Negative Leonard sign no CVA tenderness EXTREMITIES: Normal range of motion. No edema. SKIN: Warm, dry, no rash. NEURO: No focal deficits. Alert and oriented x3 Course Vital Signs Vital signs: Vital Signs Temperature 97.6 F 12/05/24 23:54 Pulse Rate 102 H 12/05/24 23:54 Respiratory Rate 16 12/05/24 23:54 Blood Pressure 199/116 H 12/05/24 23:54 Pulse Oximetry 100 12/05/24 23:54 Oxygen Delivery Room Air 12/05/24 23:54 Temperature 97.6 F 12/05/24 23:54 Pulse Rate 77 12/06/24 00:16 Respiratory Rate 16 12/06/24 00:16 Blood Pressure 178/96 H 12/06/24 00:54 Pulse Oximetry 100 12/06/24 00:16 Oxygen Delivery Room Air 12/05/24 23:54 MDM - Abdominal Pain MDM Narrative Medical decision making narrative: 34-year-old female presents to the emergency department for burning epigastric abdominal pain after having Romanian food and then brought worse with chips. Triage vitals with elevated blood pressure 199/116, patient has no history of hypertension in his denies signs or symptoms of hypertensive emergency. Will continue to monitor. She is afebrile and nontoxic appearing. Exam is significant for mild tenderness in epigastrium. There is no rebound or rigidity, negative Leonard sign. I suspect symptoms are secondary to gastritis / GERD. Will obtain lab work including CBC, chemistries, lipase, urine and provide IV Protonix and GI cocktail and re-evaluate. labwork shows leukocytosis of 14.3. Chemistries unremarkable with normal LFTs, normal lipase. UA with 6-10 wbc's and 3-5 RBCs. Urine was sent for culture. Will refrain from treatment at this time given she is asymptomatic. is negative. On re-evaluation, patient feels much better after GI cocktail and Protonix. Again suspect symptoms are secondary to GERD/ gastritis. Will provide a script for Protonix. I discussed diet changes. Additionally, patient's blood pressures were found to be elevated in the ED. She denies signs or symptoms of hypertensive emergency. Advised her to take a blood pressure log and follow-up with her PCP. Discussed return precautions. She is agreeable with the plan verbalized understanding. Discharged in stable condition. Lab Data 12/06/24 00:03 12/06/24 00:03 Labs: Lab Results 12/06/24 12/06/24 Range/Units 00:03 00:16 WBC 14.3 H (4.5-10.0) K/mm3 RBC 5.25 (4.2-5.4) M/mm3 Hgb 14.2 (12.0-15.0) g/dL Hct 42.8 (37.0-47.0) % MCV 81.5 (80-100) fl MCH 27.0 (26-34) pg MCHC 33.2 (32-36) g/dl RDW 12.5 (11.5-14.5) % Plt Count 431 H (150-375) k/mm3 MPV 9.4 (7.4-10.4) fl Immature Gran % (Auto) 0.5 (0-0.5) % Neut % (Auto) 74.7 H (45.5-73.1) % Lymph % (Auto) 18.7 (18.3-44.2) % Chase % (Auto) 5.1 (2.6-8.5) % Eos % (Auto) 0.6 (0-4.4) % Baso % (Auto) 0.4 (0.2-1.2) % Lymph # (Auto) 2.67 (0.9-3.2) K/mm3 Chase # (Auto) 0.7 H (0.1-0.6) K/mm3 Eos # (Auto) 0.1 (0-0.3) K/mm3 Baso # (Auto) 0.1 (0.0-0.1) K/mm3 Abs Immat Gran (auto) 0.07 H (0.00-0.031) K/mm3 Absolute Neuts (auto) 10.7 H (1.3-6.7) K/mm3 Absolute Nucleated RBC 0.000 (0.0-0.012) K/mm3 Nucleated RBC % 0.0 (0.0-0.2) % Sodium 141 (137-145) mmol/L Potassium 3.6 (3.4-5.0) mmol/L Chloride 102 (98-107) mmol/L Carbon Dioxide 27 (22-30) mmol/L Anion Gap 12 (4-12) mmol/L BUN 10 (7-17) mg/dL Creatinine 0.73 (0.7-1.0) mg/dL Estim Creat Clear Calc 144 ml/min Estimated GFR > 60 (59 - ) Glucose 123 H (65-110) mg/dL Calcium 9.1 (8.4-10.2) mg/dL Total Bilirubin 0.4 (0.2-1.3) mg/dL AST 24 (14-36) U/L ALT 25 (6-35) U/L Alkaline Phosphatase 99 (38-126) U/L Total Protein 8.0 (6.3-8.2) g/dL Albumin 4.2 (3.5-5.1) g/dL Lipase 283 (23-300) U/L Urine Color Yellow (Yellow) Urine Appearance Cloudy H (Clear) Urine pH 6.0 (5.0-9.0) Ur Specific [place] 1.024 (1.001-1.035) Urine Protein 1+ H (Negative) mg/dL Urine Glucose (UA) Negative (Negative) mg/dL Urine Ketones Negative (Negative) mg/dL Ur Blood (Man) Negative (Negative) Urine Nitrate Negative (Negative) Urine Bilirubin Negative (Negative) Urine Urobilinogen 0.2 (<2.0) mg/dL Leukocyte Esterase Rfl Negative (Negative) CLAUDE/UL Urine RBC 3-5 H (0-2) /hpf Urine WBC 6-10 H (0-3) /hpf Ur Squamous Epith Cells Few (Few) /hpf Urine Bacteria 2+ H /hpf Urine Casts 0-2 POC Urine HCG, Qual Negative (Negative) Discharge Plan Discharge Clinical Impression: Epigastric abdominal pain Patient Disposition: Home, Self-Care Condition: Stable Instructions: Antibiotic Form, Gastritis (DC), Diet for Stomach Ulcers and Gastritis (ED), Abdominal Pain (ED) Additional Instructions: Your evaluated in the emergency department for epigastric abdominal pain. Your presentation is consistent with gastritis as discussed. Please take the Protonix as directed. Refrain from spicy or acidic foods, coffee, alcohol, medications such as naproxen/ Aleve, ibuprofen/ Motrin / Advil. Follow-up with your primary care provider. Return to the emergency department if you develop new or worsening symptoms. Additional your blood pressure is found to be elevated. Please take a blood pressure log as directed follow-up closely with her PCP. Return to the emergency department if you develop chest pain, shortness of breath, vision changes or other concerning symptoms. Patient Language: Khmer Prescriptions: New pantoprazole 20 mg tablet,delayed release (DR/EC) 20 mg PO HS 28 Days Qty: 28 0RF No Action omeprazole 20 mg capsule,delayed release(DR/EC) Lo Loestrin Fe 1 mg-10 mcg (24)/10 mcg (2) tablet amoxicillin-pot clavulanate [Augmentin] 875-125 mg tablet 1 tablet PO Q12H Qty: 20 0RF ofloxacin 0.3 % drops 10 drp EACH EAR DAILY 7 Days Qty: 10 0RF ibuprofen [IBU] 600 mg tablet 600 mg PO QID PRN (Reason: pain) Qty: 7 0RF metformin 500 mg tablet 500 mg PO DAILY Follow-up/Referrals: Amanda Magana APRN [Advanced Practice Nurse] -
[2024-12-06] MEDS: PANTOPRAZOLE SODIUM IV 40 MG VIAL IV PUSH (00:10)
[2024-12-06] MEDS: BELLADONNA ALK/PHENOB ELIX 10 ML, MAG HYDROX/ALUMINUM HYD/SIMETH 30 ML, LIDOCAINE 2% VI... PO (00:10)
[2024-12-06 00:16] VITALS: BP 184/102; PULSE 77; RESP 16; O2SAT 100
[2024-12-06 00:18] LABS: Add Urine Microscopic? YES; Appearance Urine Cloudy (Clear); Bacteria Urine 2+ /hpf; Bilirubin Urine Negative (Negative); Blood Urine Negative (Negative); Color Urine Yellow (Yellow); Glucose Urine UA Negative (Negative); Ketones Urine Negative (Negative); Leukocyte Esterase Ur Negative LEU/UL (Negative); Nitrate Urine Negative (Negative); Non Pathogenic Casts 0-2; Protein Urine 1+ mg/dL (Negative); Specific Grav Ur 1.024 (1.001-1.035); Squamous Epithelial Cell Urine Few /hpf (Few); Urobilinogen Urine 0.2 mg/dL (<2.0)
[2024-12-06 00:20] LABS: BEDSIDEPREGUCG Negative (Negative)
[2024-12-06 00:24] LABS: Basophils Absolute Auto 0.1 K/mm3 (0.0-0.1); Basophils Percent Auto 0.4 % (0.2-1.2); Eosinophils Absolute Auto 0.1 K/mm3 (0-0.3); Eosinophils Percent Auto 0.6 % (0-4.4); Hematocrit 42.8 % (37.0-47.0); Hemoglobin 14.2 g/dL (12.0-15.0); Immature Granulocyte Absolute 0.07 K/mm3 (0.00-0.031); Immature Granulocyte Percent A 0.5 % (0-0.5); Lymphocytes Absolute Auto 2.67 K/mm3 (0.9-3.2); Lymphocytes Percent Auto 18.7 % (18.3-44.2); Mean Corpuscular HGB Conc 33.2 g/dl (32-36); Mean Corpuscular Volume 81.5 fl (80-100); Mean Platelet Volume 9.4 fl (7.4-10.4); Monocytes Absolute Auto 0.7 K/mm3 (0.1-0.6); Monocytes Percent Auto 5.1 % (2.6-8.5); Neutrophils Absolute Auto 10.7 K/mm3 (1.3-6.7); Neutrophils Percent Auto 74.7 % (45.5-73.1); Platelet Count Result 431 k/mm3 (150-375); Red Blood Count 5.25 M/mm3 (4.2-5.4); Red Cell Distribution Width 12.5 % (11.5-14.5); White Blood Count 14.3 K/mm3 (4.5-10.0)
[2024-12-06 00:27] LABS: Alanine Aminotransferase 25 U/L (6-35); Albumin Level 4.2 g/dL (3.5-5.1); Alkaline Phosphatase 99 U/L (38-126); Anion Gap 12 mmol/L (4-12); Aspartate Amino Transferase 24 U/L (14-36); Bilirubin,Total 0.4 mg/dL (0.2-1.3); Blood Urea Nitrogen 10 mg/dL (7-17); Calcium 9.1 mg/dL (8.4-10.2); Carbon Dioxide 27 mmol/L (22-30); Chloride 102 mmol/L (98-107); Estimated CRCL calculation 144 ml/min; Estimated Glomerular Filt Rate > 60; Glucose 123 mg/dL (65-110); Lipase 283 U/L (23-300); Potassium 3.6 mmol/L (3.4-5.0); Sodium 141 mmol/L (137-145)
[2024-12-06 00:54] VITALS: BP 178/96
[2024-12-06] MEDS: FAMOTIDINE 20 MG/2 ML VIAL IV PUSH (01:17)
[2024-12-06] MEDS: KETOROLAC 30 MG/ML VIAL (*BKC) IV PUSH (01:17)
[2024-12-06] MEDS: ONDANSETRON INJ 4 MG/2 ML VIAL IV PUSH (01:17)
== END 2024-12-06 01:25 | disposition home or self-care (01) ==
PROVIDERS: Emergency Provider Physician Assistant
DX: R10.13 Epigastric pain (principal); E66.01 Morbid (severe) obesity due to excess calories; Z68.43 Body mass index [BMI] 50.0-59.9, adult
CPT/HCPCS: 36415; 80053; 81001; 81025; 83690; 85025; 87086; 96374; 96375; 99284; A9270; J1885; J2405; J2470